=== PATIENT | female | born 1970 | race Caucasian/White ===

== ENCOUNTER 2025-02-12 17:52 | Emergency (ER) | payer OTHER ==
[~2025-02-12] VITALS: Ht 162.6 cm; Wt 74.8 kg
[2025-02-12 18:01] VITALS: O2SAT 100
[2025-02-12] MEDS ORDERED: IBUP-2029 MT (19:55)
[2025-02-12 20:10] VITALS: BP 151/92; PULSE 91; RESP 18; TEMP 36.9; O2SAT 98
== END 2025-02-12 20:15 | disposition home or self-care (01) ==
LOC: ER 17:52
DX: S80.211A Abrasion, right knee, initial encounter (principal); S60.812A Abrasion of left wrist, initial encounter; M79.10 Myalgia, unspecified site; W01.0XXA Fall on same level from slipping, tripping and stumbling without subsequent striking against object, initial encounter; Y93.89 Activity, other specified; Y92.89 Other specified places as the place of occurrence of the external cause; Y99.8 Other external cause status
CPT/HCPCS: 99282